=== PATIENT | female | born 1950 | race Caucasian/White ===

== ENCOUNTER → 2020-03-07 13:42 | Outpatient (CLI) | payer MEDICARE, SELFPAY ==
[2020-03-07] MEDS: COVID-19 VACC #1, MRNA(MOD) 100 MCG/0.5 ML VIAL IM (13:50)
== END ==
PROVIDERS: Visit Provider Internal Medicine
DX: Z23 Encounter for immunization (principal)
CPT/HCPCS: 0011A; 91301

== ENCOUNTER → 2020-04-04 14:10 | Outpatient (CLI) | payer MEDICARE, SELFPAY ==
[2020-04-04] MEDS: COVID-19 VACC #2, MRNA(MOD) 100 MCG/0.5 ML VIAL IM (14:16)
== END ==
PROVIDERS: Visit Provider Internal Medicine
DX: Z23 Encounter for immunization (principal)
CPT/HCPCS: 0012A; 91301

== ENCOUNTER → 2020-04-20 10:10 | Outpatient (CLI) | payer OTHER, SELFPAY | PROVIDERS: PCP Nurse Practitioner Family; Referring Provider Nurse Practitioner Family; Visit Provider Nurse Practitioner Family | DX: M85.88 Other specified disorders of bone density and structure, other site (principal); Z78.0 Asymptomatic menopausal state; E07.9 Disorder of thyroid, unspecified; Z90.722 Acquired absence of ovaries, bilateral; Z87.891 Personal history of nicotine dependence; Z82.62 Family history of osteoporosis | CPT/HCPCS: 77080 ==

== ENCOUNTER → 2020-06-15 09:50 | Outpatient (CLI) | payer OTHER, SELFPAY ==
--- NOTE | 2020-07-12 09:23 | PM.CARDMON.1 ---
Organ Pipe Voicer Report Referral & Results Date Patient Seen: 06/15/20 Requesting provider: Claudette Yoon Indication: Palpitations Duration of monitoring (days): 7 Diary information: There were 16 patient triggered events and 13 patient diary entries Patient triggered events were associated with (within 45 seconds) sinus rhythm, PACs, and junctional rhythm (verses wandering atrial pacemaker) Patient diary entries were associated with the same 3 rhythms Data: Minimum sinus heart rate identified was 45 beats per minute at 01:50 on 06/17/2020 Maximum sinus heart rate was 118 beats per minute at 13:10 on 06/20/2020 Minimum overall heart rate was 35 beats per minute identified at 02:27 on 06/18/2020 during a brief (less than 3 seconds) pause Maximum overall heart rate was 144 beats per minute at 11:16 on 06/18/2020 during a 7 beat run of SVT/atrial tachycardia Less than 1% of identified beats were ventricular or supraventricular ectopic in origin, which would classify them as rare. There were episodes of either junctional rhythm or more likely a wandering atrial pacemaker Impression: 7 day monitoring engineer without evidence of serious cardiac dysrhythmia. Single clear etiology for patient's sense of palpitations not identified on this study as majority of patient events were associated with sinus rhythm only. However other various dysrhythmias were identified as above including during patient events. Clinical correlation suggested
== END ==
PROVIDERS: PCP Nurse Practitioner Family; Referring Provider Nurse Practitioner Family; Visit Provider Nurse Practitioner Family
DX: R00.2 Palpitations (principal)
CPT/HCPCS: 93242; 93244

== ENCOUNTER → 2020-08-22 14:52 | Outpatient (CLI) | payer OTHER, SELFPAY ==
--- NOTE | 2020-08-22 | DI.ECHO.S_ITS ---
[facility] +---------+ : : [address] : [address] : : : : [id number] : : : : Phone: [phone]+ Echocardiogram Report + + :Name: KRIS MCRAE Study Date: 08/22/2020 Height: 68 in : :[facility] ReadingLocation: Weight: 190 lb : : Gender: Female BSA: 2.0 m2 : :: 1950 Age: 70 yrs BP: 160/87 mmHg: :Reason For Study: PALPITATIONS : :Ordering Physician: LANCE, : :OMAR Performed By: Judith Collins : :Referring: OMAR LLANES : + + Interpretation Summary 1) Normal left ventricular thickness, size, wall motion, and systolic function (EF 60-65%). 2) The right ventricle is mildly dilated and has low normal function. 3) Diastolic parameters suggest a pseudonormalization pattern, consistent with probable elevated filling pressures. 4) No significant valvular abnormalities. 5) Hypertension present during the study (BP 160/87mmHg). 6) No prior Echo available for comparison. Procedure: A two-dimensional transthoracic echocardiogram with color flow and Doppler was performed. The study quality was technically adequate. There is no prior echocardiogram noted for this patient. The patient was in sinus bradycardia with heart rates between 55-60 bpm during the exam. Left Ventricle: The left ventricle is normal in size and wall thickness. The ejection fraction is estimated to be 60-65%. Left ventricular systolic function appears normal without focal wall motion abnormalities. Diastolic parameters suggest a pseudonormalization pattern, consistent with probable elevated filling pressures. Right Ventricle: The right ventricle is mildly dilated. Right ventricular systolic function is at the lower limits of normal. Atria: The left atrium is moderately dilated. Right atrial size is normal. There is no Doppler evidence for an interatrial shunt. Mitral Valve: The mitral valve is normal in structure and function. There is mild mitral regurgitation. Aortic Valve: The aortic valve is trileaflet. The aortic valve opens well. There is no aortic valve stenosis. No aortic regurgitation is present. Tricuspid Valve: The tricuspid valve is normal in structure and function. The right ventricular systolic pressure is estimated to be at least 32 mmHg based on an estimated right atrial pressure of 8 mm Hg. There is mild tricuspid regurgitation. Pulmonic Valve: The pulmonic valve leaflets are thin and pliable; valve motion is normal. There is no pulmonic valvular regurgitation. Great Vessels: The aortic root is normal size. The ascending aorta could not be visualized. The IVC is dilated (diameter is greater than 2.1 cm) yet it collapses greater than 50% with a sniff. This suggests a right atrial pressure of 8 mm Hg. Pericardium/ Pleura There is no pericardial effusion. There is no pleural effusion. MMode/2D Measurements & Calculations LVIDd: 4.7 cm LVOT diam: 2.1 cm LVIDs: 3.1 cm Ao root diam: 3.0 cm FS: 34.3 % Ao Arch Diam (Prox Trans): 2.9 cm IVSd: 0.84 cm LVPWd: 0.91 cm LV rodriguez. diameter/BSA (cm/m^2): 2.4 LV sys. diameter/BSA (cm/m^2): 1.6 LA A2 area: 26.6 cm2 RA long axis: 5.1 cm LA A4 area: 21.9 cm2 RA area: 17.8 cm2 LA length (vol): 6.0 cm RA vol: 52.9 ml LA vol: 82.8 ml RA : 26.5 ml/m2 LA vol index: 41.4 ml/m2 IVC diam: 2.1 cm RVD1 (basal): 4.5 cm RVD2 (mid): 3.4 cm TAPSE: 1.8 cm Doppler Measurements & Calculations Ao V2 max: 158.9 cm/sec LVOT Max Humberto: 100.3 cm/sec Ao V2 mean: 113.1 cm/sec LV V1 max P.0 mmHg Ao max P.1 mmHg LV V1 VTI: 23.2 cm Ao mean P.7 mmHg MIRTA(I,D): 2.1 cm2 Ao V2 VTI: 40.4 cm MIRTA(V,D): 2.3 cm2 sev ratio: 0.57 MIRTA indexed to BSA (cm^2/m^2): 1.0 MV E max humberto: 95.2 cm/sec TR max humberto: 256.6 cm/sec MV A max humberto: 88.2 cm/sec TR max P.3 mmHg MV E/A: 1.1 PA V2 max: 116.0 cm/sec Med Peak E' Humberto: 5.9 cm/sec PA V2 mean: 77.9 cm/sec E/E' med: 16.2 PA mean P.8 mmHg Lat Peak E' Humberto: 7.3 cm/sec PA pr(Accel): 31.0 mmHg E/E' lat: 13.0 E/e' average: 14.6 MV dec time: 0.24 sec SV(MADALYN): 83.2 ml Reading Physician:04:21 PM
== END ==
PROVIDERS: PCP Nurse Practitioner Family; Referring Provider Internal Medicine Cardiovascular Disease; Visit Provider Internal Medicine Cardiovascular Disease
DX: I08.1 Rheumatic disorders of both mitral and tricuspid valves (principal); R00.2 Palpitations; Z87.74 Personal history of (corrected) congenital malformations of heart and circulatory system
CPT/HCPCS: 93306

== ENCOUNTER → 2021-01-25 09:54 | Outpatient (CLI) | payer OTHER, SELFPAY ==
--- NOTE | 2021-01-25 | DI.MG.S_ITS ---
BILATERAL DIGITAL SCREENING MAMMOGRAM 3D/2D WITH CAD: 01/25/2021 CLINICAL: Routine screening. Comparison is made to exams dated: 02/08/2014 mammogram and 01/16/2018 mammogram - outside facility. There are scattered fibroglandular elements in both breasts. Current study was also evaluated with a Computer Aided Detection (CAD) system. No significant masses, calcifications, or other findings are seen in either breast. There has been no significant interval change. IMPRESSION: NEGATIVE There is no mammographic evidence of malignancy. A 1 year screening mammogram is recommended. This exam was interpreted at Station ID: [id number]. NOTE: For mammograms, a report in lay terms will be sent to the patient. Approximately 15% of breast malignancies will not be visualized mammographically. In the management of a palpable breast mass, a negative mammogram must not discourage biopsy of a clinically suspicious lesion. Electronically Signed By: Ashley gaines/dequan:01/25/2021 11:19:03 letter sent: Normal Exam ACR BI-RADS Category 1: Negative [id number]
== END ==
PROVIDERS: PCP Nurse Practitioner Family; Referring Provider Family Medicine; Visit Provider Family Medicine
DX: Z12.31 Encounter for screening mammogram for malignant neoplasm of breast (principal)
CPT/HCPCS: 77063; 77067

== ENCOUNTER → 2021-11-26 10:40 | Outpatient (CLI) | payer OTHER, SELFPAY ==
[2021-11-26 12:21] LABS: COVID19 -Nasal RAPID Negative (Negative)
== END ==
PROVIDERS: PCP Nurse Practitioner Family; Visit Provider Surgery
DX: Z20.822 Contact with and (suspected) exposure to COVID-19 (principal); Z01.812 Encounter for preprocedural laboratory examination
CPT/HCPCS: 87635; C9803

== ENCOUNTER 2021-11-27 13:23 | Day surgery (SDC) | payer OTHER, SELFPAY ==
[2021-11-27] VITALS (7 sets, daily range): BP systolic 101–159; BP diastolic 56–85; PULSE 65–103; RESP 12–20; TEMP 36.1–36.7; O2SAT 94–98; BMI 26.6
--- NOTE | 2021-11-27 | PATH_ITS ---
[facility] Accession Number: [id number] . 01 Material submitted: . PART A: cecum - CECAL POLYP X2 PART B: colon - TRANSVERSE COLON POLYP PART C: sigmoid colon - SIGMOID POLYP X2 . 01 Diagnosis: A. 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 No evidence of malignancy or high-grade dysplasia. . B. Transverse Colon, Polyp, Biopsy: Tubular adenoma. . C. Sigmoid Colon, Polyp x2, Biopsy: Tubular adenoma. Hyperplastic polyp. MRV 11/30/2021 1617 Local . 01 Electronically signed: . Cony Ignacio MD, Pathologist NPI- [id number] . 01 Gross description: . Part A: CECAL POLYP X2: Received in formalin are multiple fragment(s) of larson, soft tissue measuring 0.1 x 0.1 x 0.1 cm to 0.4 x 0.4 x 0.3 cm submitted entirely in 1 cassette(s) Part B: TRANSVERSE COLON POLYP: Received in formalin is 1 fragment(s) of larson, soft tissue measuring 0.2 x 0.2 x 0.2 cm submitted entirely in 1 cassette(s) Part C: SIGMOID POLYP X2: Received in formalin are 2 fragment(s) of larson, soft tissue measuring 0.1 x 0.1 x 0.1 cm to 0.3 x 0.3 x 0.3 cm submitted entirely in 1 cassette(s) /PAM 11/28/2021 2220 Local . 01 Pathologist provided ICD-10: D12.0, D12.3, D12.5 . 01 CPT . 797340, 312315, 498374 Specimen Comment: A courtesy copy of this report has been sent to [phone] Performed at: [address] [facility] [address], [place], [place] [id number] MD Gunnar Soler MD Phone: [phone]
[2021-11-27] MEDS: LACTATED RINGERS 1,000 ML 200 ML IV (13:44)
--- NOTE | 2021-11-27 13:57 | PM.HP.1 ---
History of Present Illness History of Present Illness Date Patient Seen: 11/27/21 Time Patient Seen: 13:57 Chief complaint: HIC Narrative: The patient presents for colorectal screening. She had previously normal colonoscopy 5 years ago. She is here for colonoscopy today secondary to a positive FIT. No personal or family history of colon cancer. On further history denies any recent gastrointestinal symptoms. No nausea, vomiting, abdominal pain, loss of appetite, unexplained weight loss, change in bowel habits, diarrhea, constipation, melena, hematochezia, or bright red blood per rectum. Patient History Surgical History H/O: hysterectomy Family & Social History Social History: household members spouse Tobacco & Substance use: Smoking Status Former smoker alcohol intake current alcohol intake frequency a few times a week Substance Use Type marijuana Meds Home Medications and Allergies Home Medications Medication Instructions Recorded Confirmed Type amlodipine 10 mg tablet 10 mg PO DAILY 11/27/21 11/27/21 History levothyroxine 88 mcg tablet 88 mcg PO DAILY 11/27/21 11/27/21 History rosuvastatin 20 mg tablet 20 mg PO DAILY 11/27/21 11/27/21 History sertraline 50 mg tablet 100 mg PO DAILY 11/27/21 11/27/21 History Allergies Allergy/AdvReac Type Severity Reaction Status Date / Time No Known Drug Allergies Allergy Verified 11/27/21 13:31 Exam Vital Signs (past 8 hours): - 11/27/21 13:39 Temperature 98.1 F Pulse Rate 103 H Respiratory Rate 20 Blood Pressure 159/85 H Pulse Oximetry 95 Oxygen Delivery Method Room Air Oxygen Delivery Method Room Air Narrative Exam Narrative: General adult woman alert oriented no acute distress Assessment & Plan Assessment and plan (1) Positive FIT (fecal immunochemical test): Status: Acute Assessment & Plan narrative: Diagnostic colonoscopy is recommended for a positive fecal immunochemical test. Technical details were discussed. Risks, benefits, alternatives explained. Risks including but not limited to myocardial infarction, aspiration, bleeding, pain, missed lesion, incomplete examination, need for further radiographic studies, colonic perforation, and need for major abdominal surgery were discussed. All questions were answered to their satisfaction, and they are in agreement with this plan. Time Spent With Patient Critical Care time: I spent a total of [] minutes of critical care time on this patient's care today; this time is exclusive of procedural time.
--- NOTE | 2021-11-27 14:06 | PM.OP.COLON ---
Operative Date/Time/Diagnoses Date of procedure: 11/27/21 Time of procedure: 14:06 Pre-op diagnosis: Positive fecal immunochemical test Post-op diagnosis: same Procedure & Clinicians Study performed: Colonoscopy Same procedure as scheduled: Yes Indications: Positive fecal immunochemical test Surgeon: Jaime Whitehead Procedure Notes Procedure in detail: Medications: Conscious sedation using 5mg IV midazolam and 200mcg IV of fentanyl The history and physical was performed/updated and the patient is ASA class is 2. The procedure was discussed in detail with the patient. Potential risks complications including infection, bleeding, missed diagnosis, perforation, need for surgery, and were explained. Their questions were answered and informed consent was obtained. Patient was brought to the procedure room and placed standard monitoring equipment. The patient's vital signs were monitored continuously throughout the entire procedure. Prior to starting time-out was performed. The patient was placed in the left lateral recumbent position. Procedural sedation was administered. Examination began with a thorough inspection of the perianal area there was no evidence of fissures, fistulae, external hemorrhoids or cutaneous malignancy. The colonoscopy scope was then placed into the anal canal and was advanced to the cecum, which was identified by the ileocecal valve, the appendiceal orifice and the confluence of the taenia. The scope was then slowly withdrawn examining colon thoroughly in all directions, irrigating it of any residual stool. FINDINGS 1. Cecum pedunculated 5 mm polyp removed with cold snare. Near the appendiceal orifice. 3 mm serrated polyp removed with forceps 2. Transverse colon-3 mm polyp removed with forceps 3. Sigmoid colon 3 mm polyp x2 removed with forceps 4. Dutton diverticulosis The patient tolerated the procedure well. They will be discharged once criteria are met. The prep was of good/excellent quality. The withdrawl time was 18minutes. The sedation time was30 minutes. Specimen(s): other (Cecal polyps x2, transverse colon polyp, sigmoid polyp x2) Impression: Colonic polyps Post-procedure Recommendations: High fiber diet and Will call with biopsy results Disposition: same day surgery
[2021-11-27] MEDS: MIDAZOLAM 5 MG/5 ML VIAL IV (14:41)
[2021-11-27] MEDS: fentaNYL 100 MCG/2 ML INJ IV (14:42)
--- NOTE | 2021-11-27 15:14 | SUR.PHASEI ---
SBAR report to Norberto riley pt pre-op SBP 159 however pt report having Bp at home in the 120's. Pt denies dizziness /lightheadedness.
== END 2021-11-27 15:26 | disposition home or self-care (01) ==
PROVIDERS: PCP Family Medicine; Referring Provider Surgery; Visit Provider Surgery
PROC: 0DJD8ZZ Inspection of Lower Intestinal Tract, Via Natural or Artificial Opening Endoscopic (ICD-10-PCS; CPT 45378; principal; 2021-11-27 14:30)
DX: R19.5 Other fecal abnormalities (principal); K57.30 Diverticulosis of large intestine without perforation or abscess without bleeding; D12.0 Benign neoplasm of cecum; D12.3 Benign neoplasm of transverse colon; D12.5 Benign neoplasm of sigmoid colon
CPT/HCPCS: 45385; 45380; 99152; 99153; J2250; J3010

== ENCOUNTER 2022-03-03 08:39 | Emergency (ER) | payer OTHER, SELFPAY ==
[2022-03-03] VITALS (32 sets, daily range): BP systolic 173–243; BP diastolic 82–115; PULSE 49–73; RESP 11–27; TEMP 36.8; O2SAT 93–100; BMI 24.3
--- NOTE | 2022-03-03 08:56 | DI.RAD.S_ITS ---
PROCEDURE: XR FOREARM LT 2V INDICATIONS: r/o fx TECHNIQUE: 2 views of the forearm were acquired. COMPARISON: None. FINDINGS: Bones: Comminuted displaced distal radius fracture described in wrist radiographs. Probable ulnar styloid fracture. No other more proximal fractures. Elbow alignment appears grossly normal. Soft tissues: No suspicious soft tissue calcifications or masses. IMPRESSION: 1. Impacted distal radius fracture described in wrist radiographs. 2. Ulnar styloid fracture. Dictated by: Ashley Nino M.D. on 03/03/2022 at 8:46 Approved by: Ashley Nino M.D. on 03/03/2022 at 8:47
--- NOTE | 2022-03-03 08:56 | DI.RAD.S_ITS ---
PROCEDURE: XR WRIST LT MIN 3V INDICATIONS: r/o fx TECHNIQUE: Four views of the wrist were acquired. COMPARISON: None. FINDINGS: Bones: There is a dorsally displaced and markedly impacted transverse fracture of the distal radius with slight comminution. The fracture fragment is dorsally displaced by a full shaft width and impacted by about 1 cm radiocarpal alignment appears maintained.. There is probably an ulnar styloid fracture Soft tissues: No suspicious soft tissue calcifications. Prominent ventral soft tissue swelling. No radiodense foreign bodies. IMPRESSION: 1. Dorsally displaced and impacted comminuted distal radius fracture. 2. Radiocarpal alignment remains intact. Dictated by: Ashley Nino M.D. on 03/03/2022 at 8:43 Approved by: Ashley Nino M.D. on 03/03/2022 at 8:46
--- NOTE | 2022-03-03 09:03 | ED.UPPEXIN ---
HPI - Extremity Injury (Upper) General Chief Complaint: Extremity Injury, Upper Stated Complaint: fell thinks broke LT wrist Time Seen by Provider: 03/03/22 08:55 Source: patient Mode of arrival: Wheelchair Limitations: no limitations History of Present Illness HPI narrative: This is a 71 year old female with history of open heart surgery, hypertension, dyslipidemia, hypothyroidism and anxiety. Patient does not take an aspirin or any blood thinners. She states she slipped today it is icy outside and fell onto her outstretched hand on her left side. Patient is left-hand dominant. She states she has pain and obvious deformity numbness and tingling into the fingers. Patient states she did not hit her head, denies any neck or back pain. No chest pain or shortness of breath. No nausea or vomiting. Besides tingling numbness in her left hand going up towards her elbow she denies any weakness numbness or tingling elsewhere. No loss bowel or bladder control. No hip or pelvic pain. Patient states she is had prior CABG and hysterectomy. No known drug allergies. No tobacco, occasional alcohol, none today. THC but no other illicit. Patient states her primary care is Dr. Lucero Related Data Home Medications Medication Instructions Recorded Confirmed amlodipine 10 mg tablet 10 mg PO DAILY 11/27/21 11/27/21 levothyroxine 88 mcg tablet 88 mcg PO DAILY 11/27/21 11/27/21 rosuvastatin 20 mg tablet 20 mg PO DAILY 11/27/21 11/27/21 sertraline 50 mg tablet 100 mg PO DAILY 11/27/21 11/27/21 Previous Rx's Medication Instructions Recorded oxycodone 5 mg tablet 5 mg PO Q6H PRN pain #14 tabs 03/03/22 Allergies Allergy/AdvReac Type Severity Reaction Status Date / Time No Known Drug Allergies Allergy Verified 11/27/21 13:31 Review of Systems Review of Systems ROS Unobtainable: All systems reviewed & are unremarkable except as noted in HPI and below Patient History Surgical History H/O: hysterectomy Social History household members: spouse Smoking Status: Former smoker alcohol intake: current Smoking Status: Former smoker alcohol intake frequency: a few times a week Substance Use Type: marijuana Exam Narrative Exam Narrative: GEN: Patient appears in [id number] distress. HEAD: No evidence of trauma, no raccoon/Oscar sign. NECK: Nontender, painless range of motion, trachea midline Negative Nexus criteria, there is no midline line tenderness, distracting injury, altered mental status, neuro deficit, recent EtOH. EYES: PERRLA, EOMI ENT: External inspection normal, trachea is midline, TM's are normal no hemotypanum, Nares are clear, no septal hematoma, no dental or oral injury, airway is normal and with normal occlusion, No bony tenderness RESP: Chest is nontender and has symmetric movement, no ecchymosis, breath sounds are normal no crackles, wheezes or rales CVS: Heart sounds are normal, no murmur noted, No JVD. ABG/GI: Nontender, soft, normal bowel sounds, no distention, no organomegaly, pelvic rock is negative NEURO: Oriented AOx3, neuro is grossly intact, sensation and motor is normal all 4 extremities moving, cranial nerves II through XII are intact, GCS is 15 PSYCH: Normal mood and affect SKIN: Intact, warm and dry, no crepitus and without decubitus BACK: No CVA tenderness, no vertebral tenderness, no step-off's, no crepitus EXT: Patient has obvious deformity of the left wrist, she can move her fingers with flexion extension but has pain, no bony tenderness of metacarpals or phalanges. Patient does not have any tenderness of the left elbow, forearm humerus or upper shoulder. Patient can light touch to the hand but states it does feel different in comparison to the right and in all 5 fingers. She has cap refill less than 2 seconds in all 5 fingers with 2+ radial pulse. hips are nontender, no pedal edema, normal color and temperature, normal range of motion of extremities with normal tendon exam otherwise, 2+ pulses in all four extremities Initial Vital Signs Initial Vital Signs: Vital Signs Pulse Rate 69 03/03/22 08:55 Pulse Oximetry 100 03/03/22 08:55 Procedures Orthopedic Fracture Reduction Fracture #1: Time Out Performed: Yes Side: left Fracture Reduction Location: radius and ulna Analgesia: procedural sedation Technique: direct manipulation and traction/counter-traction Post Reduction X-rays Demonstrate: acceptable reduction Post-reduction neuro exam: intact (improved, tingling/numbness resolved.) Post-reduction vascular exam: intact Splint Applied: Yes Patient Tolerated Procedure: Well and No complications Procedural Sedation Consent signed: Yes Time out performed: Yes Indication: fracture/dislocation reduction ASA Class: II Mallampati Airway Classification: Class II Time of Last PO Intake: 08:00 Preparation: nanotechnology engineering technologist applied, pulse oximeter, capnometry used, supplemental O2 applied, suction/airway equipment at bedside and IV secured IV Propofol dose (mg): 75 Intraservice time/total sedation time (min): 20 ED Sedation Level: Moderate (Concious) Patient Tolerated Procedure: Well and No complications Complications: none Course Orders Ordered: ED Orders 03/03/22 10:22 COVID19 -Nasal RAPID/Pre-Proc Stat 03/03/22 10:56 XR wrist LT 2V Stat Discontinued Medications Bupivacaine HCl (Bupivacaine 0.25% Mdv) 50 ml INJ INTRA-OP ONE Stop: 03/03/22 09:25 Last Admin: 03/03/22 09:59 Dose: Not Given Documented By: RON Morphine Sulfate (Morphine 4 Mg/Ml Inj) 4 mg IV NOW ONE Stop: 03/03/22 09:04 Last Admin: 03/03/22 10:03 Dose: 4 mg Documented By: KELLY Ondansetron HCl (Ondansetron 4 Mg/2 Ml Inj) 4 mg IV Q6HR PRN PRN Reason: Nausea And Vomiting Propofol (Propofol 200 Mg/20 Ml Vial) 75 mg 1 mg/kg (75 mg) IV NOW ONE Stop: 03/03/22 09:32 Last Admin: 03/03/22 10:43 Dose: 75 mg Documented By: KELLY Vital Signs Vital signs: Vital Signs - 8 hr 03/03/22 10:18 03/03/22 11:14 03/03/22 10:20 Temperature 98.2 F Pulse Rate 60 Pulse Rate [Left Radial] 67 Respiratory Rate 16 Blood Pressure 197/98 H 223/112 H Pulse Oximetry 97 03/03/22 10:20 03/03/22 10:25 03/03/22 10:25 Temperature Pulse Rate 65 63 Pulse Rate [Left Radial] Respiratory Rate 16 18 Blood Pressure 206/99 H Pulse Oximetry 100 100 03/03/22 10:30 03/03/22 10:30 03/03/22 10:35 Temperature Pulse Rate 60 Pulse Rate [Left Radial] Respiratory Rate 17 Blood Pressure 228/115 H 206/108 H Pulse Oximetry 100 03/03/22 10:35 03/03/22 10:40 03/03/22 10:40 Temperature Pulse Rate 65 67 Pulse Rate [Left Radial] Respiratory Rate 20 16 Blood Pressure 204/110 H Pulse Oximetry 100 100 03/03/22 10:43 03/03/22 10:43 03/03/22 10:45 Temperature Pulse Rate 64 49 L Pulse Rate [Left Radial] Respiratory Rate 16 27 H Blood Pressure 203/99 H 210/102 H Pulse Oximetry 99 100 03/03/22 10:50 03/03/22 10:50 03/03/22 10:58 Temperature Pulse Rate 54 L 64 Pulse Rate [Left Radial] Respiratory Rate 21 16 Blood Pressure 209/98 H Pulse Oximetry 93 03/03/22 10:55 03/03/22 10:55 03/03/22 11:00 Temperature Pulse Rate 51 L 56 L Pulse Rate [Left Radial] Respiratory Rate 16 11 L Blood Pressure 214/86 H Pulse Oximetry 96 95 03/03/22 11:01 03/03/22 11:01 03/03/22 11:05 Temperature Pulse Rate 60 Pulse Rate [Left Radial] Respiratory Rate 17 Blood Pressure 192/93 H 194/102 H Pulse Oximetry 95 03/03/22 11:05 03/03/22 11:10 03/03/22 11:10 Temperature Pulse Rate 59 L 52 L Pulse Rate [Left Radial] Respiratory Rate 16 13 Blood Pressure 193/88 H Pulse Oximetry 97 98 03/03/22 11:15 03/03/22 11:15 03/03/22 11:20 Temperature Pulse Rate 59 L 56 L Pulse Rate [Left Radial] Respiratory Rate 14 12 Blood Pressure 197/98 H Pulse Oximetry 96 97 03/03/22 11:25 03/03/22 11:30 03/03/22 11:30 Temperature Pulse Rate 53 L 62 Pulse Rate [Left Radial] Respiratory Rate 18 18 Blood Pressure 173/82 H Pulse Oximetry 99 97 03/03/22 11:35 03/03/22 11:40 03/03/22 11:45 Temperature Pulse Rate 60 56 L 64 Pulse Rate [Left Radial] Respiratory Rate 17 14 Blood Pressure Pulse Oximetry 97 98 96 MDM - Extremity Injury (Upper) Lab Data Labs: Lab Results 03/03/22 Range/Units 10:22 SARS-CoV-2 (PCR) Negative (Negative) Point of Care Testing Test Results Not applicable Imaging Data Extremity x-ray #1: My Impression: Fully displaced radial ulnar fracture distal. Extremity x-ray #2: My Impression: Patient has improvement of alignment although still some displacement. MDM Narrative Medical decision making narrative: This is a 71-year-old female with obvious deformity of her left wrist, patient had IV access for pain medication and possible sedation she is obvious deformity on exam. Patient has some sensation change but is present she is otherwise vascularly intact. Closed fracture with no lacerations or wounds. Patient had complete misalignment of her fracture, patient had procedural sedation with improve malalignment. Case was reviewed with Dr. Isbell with Orthopedic surgery. Outpatient follow-up recommended. Return precautions all questions answered, also discussed specific recommendations from Dr. Isbell that if patient is having worsening tingling to call the orthopedic office but if having significant changes to just come back to the ER. Discharge Plan Departure Patient Disposition: Home Clinical Impression: Closed fracture of left wrist Activity Restrictions/Additional Instructions: Follow-up with orthopedic surgery, call tomorrow morning to set up an follow-up next week. If you are tingling gets worse please call the office. If you are losing sensation or having been color changes or rapidly worsening pain come to the ER. You may take Tylenol up to a 1000 mg every 6 hours as needed for pain. You may take oxycodone in addition 1 tablets every 6 hours as needed. This medication can make you sleepy do not drive, perform hazardous activities or make any major decisions while taking it. This medication will make you constipated please take a stool softener once to twice daily until stools are soft and regular. Prescription sent to [facility] Splint Care: Keep splint clean and dry. Elevated affected body part to decrease swelling. OK to use ice pack on the affected body part. Use for 15-20 minutes each time, for 5-6x per day. If you develop worsening pain, numbness, tingling, discoloration of the affected body part, loosen the splint by loosening the EDWARD wrap, and either see your doctor for an urgent re-assessment, or return to the Emergency Department. Return to the Emergency Department for any new or worsening symptoms. Prescriptions: New oxycodone 5 mg tablet 5 mg PO Q6H PRN (Reason: pain) Qty: 14 0RF No Action levothyroxine 88 mcg tablet 88 mcg PO DAILY amlodipine 10 mg tablet 10 mg PO DAILY sertraline 50 mg tablet 100 mg PO DAILY rosuvastatin 20 mg Tablet 20 mg PO DAILY Referrals: Indy Elizabeth MD [Physician] - Pablo Malin MD [Primary Care Provider] - Stand Alone Forms: Patient Portal/API
[2022-03-03] MEDS: MORPHINE 4 MG/ML INJ IV (10:03)
[2022-03-03] MEDS: propofoL 200 MG/20 ML VIAL 75 MG IV (10:43)
[2022-03-03 10:44] LABS: COVID19 -Nasal RAPID Negative (Negative)
--- NOTE | 2022-03-03 10:56 | DI.RAD.S_ITS ---
PROCEDURE: XR WRIST LT 2V INDICATIONS: Postreduction TECHNIQUE: Two views of the wrist were acquired. COMPARISON: [facility], CR, XR WRIST LT MIN 3V, 03/03/2022, 8:55. FINDINGS: Bones: Splint material obscures fine bone detail. There is improved alignment of the mainly transverse, slightly comminuted distal radius fracture with now mild impaction and less than 1/2 shaft width of dorsal displacement. No angulation. Radiocarpal alignment is grossly normal. Ulnar styloid fracture is mildly displaced. Soft tissues: No suspicious soft tissue calcifications. No significant soft tissue swelling post splint placement. IMPRESSION: 1. Improved alignment of distal radius fracture post reduction. 2. Redemonstrated displaced ulnar styloid fracture. Dictated by: Ashley Nino M.D. on 03/03/2022 at 10:27 Approved by: Ashley Nino M.D. on 03/03/2022 at 10:29
== END 2022-03-03 11:56 | disposition home or self-care (01) ==
PROVIDERS: Emergency Provider Emergency Medicine; PCP Family Medicine
DX: S52.502A Unspecified fracture of the lower end of left radius, initial encounter for closed fracture (principal); S52.612A Displaced fracture of left ulna styloid process, initial encounter for closed fracture; W00.0XXA Fall on same level due to ice and snow, initial encounter; Z20.822 Contact with and (suspected) exposure to COVID-19
CPT/HCPCS: 25605; 29125; 36415; 73090; 73100; 73110; 87635; 96374; 99152; 99153; 99284; C9803; J2270; J2704

== ENCOUNTER → 2022-12-06 09:39 | Outpatient (CLI) | payer OTHER, SELFPAY ==
--- NOTE | 2022-12-06 | DI.RAD.S_ITS ---
Bone Density Report Name: KRIS MCRAE Age: 72 Sex: Female Ethnicity: White Date of : 1950 Indication: osteopenia; Referring Provider: HELENA ENGLAND Study: Bone densitometry was performed. Exam Date: December 06, 2022 Accession number: [id number] Bone Density: Region BMD T-score Z-score Classification AP Spine(L1-L4) 0.737 -2.8 -0.7 Osteoporosis Femoral Neck (Left) 0.620 -2.1 -0.3 Osteopenia Total Hip (Left) 0.790 -1.2 0.3 Osteopenia Femoral Neck (Right) 0.614 -2.1 -0.3 Osteopenia Total Hip (Right) 0.750 -1.6 -0.1 Osteopenia Total Hip Mean 0.770 -1.4 0.1 Osteopenia World Health Organization criteria for BMD impression classify patients as: Normal (T-score at or above -1.0), Osteopenia (T-score between -1.0 and -2.5), or Osteoporosis (T-score at or below -2.5). 10-year Fracture Risk: FRAX not reported because: Some T-score for Spine Total or Hip Total or Femoral Neck at or below -2.5 Previous Exams: -- Region Exam Age BMD T-score BMD Change BMD Change Date g/cm2 vs Baseline vs Previous -- AP Spine (L1-L4) 12/06/2022 72 0.737 -2.8 -0.108 (-12.7%)# -0.108 (-12.7%)# 04/20/2020 69 0.845 -1.8 Total Hip(Left) 12/06/2022 72 0.790 -1.2 -0.077 (-8.9%)# -0.077 (-8.9%)# 04/20/2020 69 0.867 -0.6 Total Hip(Right) 12/06/2022 72 0.750 -1.6 -0.068 (-8.3%)# -0.068 (-8.3%)# 04/20/2020 69 0.818 -1.0 -- *Denotes significance at 95% confidence level, LSC for AP Spine = 0.022 g/cm2, LSC for Total Hip = 0.027 g/cm2 # Denotes dissimilar scan types or analysis methods Impression: The patient has osteoporosis, based on the Total Spine T-score. No significant bone loss was observed. Discussion: INCREASED RISK OF FRACTURE. BONE DENSITY IS UNDESIRABLY LOW AT ONE OR MORE SKELETAL SITES, CONSISTENT WITH POSTMENOPAUSAL OSTEOPOROSIS. This patient's lowest T-score meets the World Health Organization's (WHO) criteria for osteoporosis at one or more sites (T-score -2.5 or below). In untreated patients, the risk of osteoporotic fracture increases approximately two-fold for each 1.0 SD decrease in T-score. Low bone density is not the only risk factor for fracture; also consider factors such as patient's age, frailty or poor health, risk of falling, risk of injury, previous osteoporotic fracture, family history of osteoporosis, cigarette smoking, low body weight, etc. Not everyone with low bone mineral density has osteoporosis; osteomalacia and other metabolic bone disorders should also be considered. Patients who have osteoporosis should be evaluated for specific diseases and conditions (secondary causes) that may cause or contribute to bone loss. The [place] Association of Clinical Endocrinologists (AACE) and National Osteoporosis Foundation (NOF) recommend pharmacologic intervention for all postmenopausal women whose T-score is in this range. The patient should follow a healthful lifestyle (good nutrition with adequate calcium and vitamin D, and appropriate weight-bearing exercise). Follow-Up: Consider a repeat BMD and Vertebral Fracture Assessment (VFA) exam in 2 years or sooner if medically necessary, to reassess this patient's status. Reported by: GABE DOTY M.D. on 12/06/2022 10:01:00 AM.
== END ==
PROVIDERS: PCP Registered Nurse; Referring Provider Internal Medicine; Visit Provider Internal Medicine
DX: Z78.0 Asymptomatic menopausal state (principal); M81.0 Age-related osteoporosis without current pathological fracture
CPT/HCPCS: 77080

== ENCOUNTER → 2023-11-05 11:11 | Outpatient (CLI) | payer OTHER, SELFPAY ==
--- NOTE | 2023-11-05 | DI.MG.S_ITS ---
BILATERAL DIGITAL SCREENING MAMMOGRAM 3D/2D WITH CAD: 11/05/2023 CLINICAL: Routine screening. Family history of breast cancer. Comparison is made to exams dated: 01/25/2021 mammogram - [facility], 01/16/2018 mammogram, and 02/08/2014 mammogram - outside facility. The breasts are heterogeneously dense, which may obscure small masses (category c / 51-75% glandular tissue). Current study was also evaluated with a Computer Aided Detection (CAD) system. No significant masses, calcifications, or other findings are seen in either breast. Left breast scar marker. There has been no significant interval change. IMPRESSION: NEGATIVE There is no mammographic evidence of malignancy. A 1 year screening mammogram is recommended. Based on the Tyrer Cuzick model (a risk assessment model) the patient's lifetime risk is 3.1% and her 10 year risk is 2.1%. According to the ACR, ACS, and NCCN guidelines, an annual breast MRI exam along with mammogram is recommended if the patient's lifetime risk is 20% or greater. This exam was interpreted at Station ID: [id number]. NOTE: For mammograms, a report in lay terms will be sent to the patient. Approximately 15% of breast malignancies will not be visualized mammographically. In the management of a palpable breast mass, a negative mammogram must not discourage biopsy of a clinically suspicious lesion. Electronically Signed By: Angel Hairston M.D. slc/:11/05/2023 13:00:20 letter sent: Normal Exam ACR BI-RADS Category 1: Negative
== END ==
PROVIDERS: PCP Registered Nurse; Referring Provider Registered Nurse; Visit Provider Registered Nurse
DX: Z12.31 Encounter for screening mammogram for malignant neoplasm of breast (principal); Z80.3 Family history of malignant neoplasm of breast; R92.333 Mammographic heterogeneous density, bilateral breasts
CPT/HCPCS: 77063; 77067

== ENCOUNTER 2024-03-15 18:36 | Emergency (ER) | payer MEDICARE, SELFPAY ==
[2024-03-15] VITALS (27 sets, daily range): BP systolic 129–222; BP diastolic 66–127; PULSE 54–146; RESP 14–22; TEMP 36.4–36.9; O2SAT 94–97; BMI 24.9
--- NOTE | 2024-03-15 19:00 | EKG_ITS ---
[facility] [id number] [place] [id number] Test Date: 2024-03-15 Pat Name: Geovanna Pickard Department: Room: Gender: Female Centrifuge Operator: MELIA : 1950 Requested By: Order Number: [id number] Reading MD: Cj Hall Measurements Intervals [place] Rate: 140 P: 238 [place]: QRS: -28 QRSD: 132 T: -47 QT: 346 QTc: 528 Interpretive Statements Critical Test Result: High HR Atrial flutter with 2:1 AV conduction Nonspecific intraventricular block Minimal voltage criteria for LVH, may be normal variant ( Marshal product ) T wave abnormality, consider anterolateral ischemia Electronically Signed On 03-17-2024 23:44:41 PST by Cj Hall
--- NOTE | 2024-03-15 19:00 | DI.RAD.S_ITS ---
PROCEDURE: XR CHEST 1V INDICATIONS: chest pain TECHNIQUE: One view of the chest was acquired. COMPARISON: None. FINDINGS: Surgical changes and devices: Sternotomy wires. Device projects over left mid chest. Lungs and pleura: Right lung base linear opacity probably atelectasis or scarring. No dense consolidation or pleural effusion. Mediastinum: Normal heart size. Bones and chest wall: Degenerative changes. IMPRESSION: No dense consolidation or pleural effusion on this single view study. Right lung base linear opacity probably atelectasis or scarring. Dictated by: Dustin Finley M.D. on 03/15/2024 at 19:43 Approved by: Dustin Finley M.D. on 03/15/2024 at 19:44
[2024-03-15] MEDS: dilTIAZem 25 MG/5 ML SDV 10 MG IV (19:08)
[2024-03-15] MEDS: ASPIRIN 81 MG CHEW TAB 324 MG PO (19:08)
[2024-03-15 19:17] LABS: Add Manual Diff / Slide Review NO; Basophils Absolute Auto 100 /uL (0-100); Eosinophils Absolute Auto 100 /uL (0-450); Hematocrit 44.3 % (36-46); Hemoglobin 15.4 g/dL (12.0-16.0); Lymphocytes Absolute Auto 1500 /uL (1100-4500); Lymphocytes Percent Auto 25.1 % (25-40); Mean Corpuscular HGB Conc 34.9 % (30-36); Mean Corpuscular Hemoglobin 31.1 PG (26-34); Mean Corpuscular Volume 89.1 fL (80-100); Monocytes Absolute Auto 900 /uL (0-900); Monocytes Percent Auto 15.5 % (3-14); Neutrophils Absolute Auto 3300 /uL (1500-7000); Neutrophils Percent Auto 56.4 % (50-75); Platelet Count 312 X10^3/uL (150-400); Red Blood Cell Count 4.97 X10^6/uL (4.0-5.2); Red Cell Distribution Width 13.7 % (11.6-14.8); White Blood Cell Count 5.8 X10^3/uL (4.5-11.0)
[2024-03-15 19:28] LABS: Prothrombin Time 11.5 SECONDS (9.4-12.5)
[2024-03-15 19:30] LABS: PTT Partial Thromboplastin Tim 43 SECONDS (25.1-36.5)
[2024-03-15] MEDS: METOPROLOL TARTRATE 5 MG/5 ML INJ IV ×2 (19:30→19:45)
[2024-03-15 19:31] LABS: Alanine Aminotransferase 17 IU/L (<35); Albumin 4.9 g/dL (3.5-5.0); Albumin Globulin Ratio 1.6 (1.0-2.8); Alkaline Phosphatase 71 U/L (38-126); Aspartate Aminotransferase 26 IU/L (14-36); BUN Creatinine Ratio 18.8 (6-22); Bilirubin Total 0.5 mg/dL (0.2-1.3); Blood Urea Nitrogen 12 mg/dL (7-17); Calcium 9.8 mg/dL (8.4-10.2); Carbon Dioxide 22 mmol/L (22-32); Chloride 107 mmol/L (98-107); Creatine Kinase 34 U/L (30-135); Estimated Glomerular Filt Rate > 60 mL/min (>60); Glucose 103 mg/dL (80-110); HEMOLYSIS < 15 (0-50); Lipase 48 U/L (23-300); Magnesium 2.1 mg/dL (1.6-2.3); Potassium 3.6 mmol/L (3.4-5.1); Sodium 139 mmol/L (137-145); Total Protein 7.9 g/dL (6.3-8.2)
[2024-03-15 19:43] LABS: NT-proBNP (BNP-Adult 18+) 1670 pg/mL (<125); Troponin I < 0.012 ng/mL (0.01-0.034)
--- NOTE | 2024-03-15 20:20 | PC.NURSE ---
Pt ambulatory too restroom without difficulty or assistance, one person standby.
--- NOTE | 2024-03-15 21:30 | ED.CHESTPAIN ---
HPI - Chest Pain General Chief Complaint: Chest Pain Stated Complaint: rapid heart 144 sent by [facility] Time Seen by Provider: 03/15/24 19:01 Source: patient and other Mode of arrival: Ambulatory History of Present Illness HPI narrative: Patient is a 73-year-old female history of bradycardia a ZIO patch on currently hypothyroid hypertension presenting today with some mild chest discomfort. She reports that she takes her blood pressure and heart rate every day yesterday her heart rate was 46 which is about normal for her today see had a lower blood pressure and heart rate in the 100s. She denies any dizziness lightheadedness or palpitations. She is fairly confident this happened within the last 24 hours because she checks her blood pressure and heart rate on very regular basis. No prior history of atrial flutter atrial fibrillation. Not on any anticoagulation Related Data Home Medications Medication Instructions Recorded Confirmed amlodipine 10 mg tablet 10 mg PO DAILY 11/27/21 03/08/24 levothyroxine 88 mcg tablet 88 mcg PO DAILY 11/27/21 03/08/24 sertraline 50 mg tablet 100 mg PO DAILY 11/27/21 03/08/24 Previous Rx's Medication Instructions Recorded alendronate 70 mg tablet 70 mg PO QWEEK #12 tabs 03/08/24 apixaban 5 mg tablet (Eliquis) 5 mg PO BID #60 tabs 03/15/24 Allergies Allergy/AdvReac Type Severity Reaction Status Date / Time No Known Drug Allergies Allergy Verified 03/15/24 18:40 Patient History Medical History (Updated 03/15/24 @ 22:01 by Jocelyn Lopez DO) Psoriasis (~2023) PTSD (post-traumatic stress disorder) Depression Anxiety Restless leg syndrome Shoulder pain Osteoporosis Osteopenia Fractures Mumps Measles Chicken pox Cataracts, bilateral Ovarian cyst Endometriosis Hypothyroidism (~1979) Surgical History (Updated 03/08/24 @ 12:24 by Veronica Covarrubias MD) Anesthesia History of surgery on arm (~2021) ASD (atrial septal defect) (~1999) H/O: hysterectomy (~1982) Family History (Updated 02/26/24 @ 19:42 by Chandni Genao) Father Cancer History of heart disease Hyperlipidemia Hypertension Mother Hypertension Daughter Breast cancer Social History household members: spouse Smoking Status: Former smoker alcohol intake: current Smoking Status: Former smoker alcohol intake frequency: a few times a week Exam Initial Vital Signs Initial Vital Signs: Vital Signs Temperature 98.4 F 03/15/24 18:40 Pulse Rate 145 H 03/15/24 18:40 Respiratory Rate 22 03/15/24 18:40 Blood Pressure 210/117 H 03/15/24 18:40 Pulse Oximetry 97 03/15/24 18:40 Oxygen Delivery Method Room Air 03/15/24 18:40 GENERAL: Alert pleasant well-appearing 73-year-old female and in no acute distress. HEENT: Head atraumatic,EOMI, pupils reactive, face symmetric, moist mucous membranes CARDIOVASCULAR: Irregularly irregular no murmur RESPIRATORY: Breath sounds equal bilaterally, no wheezes rales or rhonchi. ABDOMEN: Soft, nontender. Normoactive bowel sounds all 4 quadrants. No guarding or rebound. EXTREMITIES: Normal range of motion, no clubbing or edema. Neurovascularly intact NEUROLOGICAL: Alert and oriented x4.Normal gait and speech. SKIN: Warm, dry, no laceration, no petechiae, no rashes or lesions. Course Orders Ordered: Discontinued Medications Apixaban (Apixaban 5 Mg Tablet) 5 mg PO NOW ONE Stop: 03/15/24 22:07 Last Admin: 03/15/24 22:18 Dose: 5 mg Documented By: TADEO Aspirin (Aspirin 81 Mg Chew Tab) 324 mg PO NOW ONE Stop: 03/15/24 19:00 Last Admin: 03/15/24 19:08 Dose: 324 mg Documented By: SB Diltiazem HCl (Diltiazem 25 Mg/5 Ml Sdv) 10 mg IV NOW ONE Stop: 03/15/24 19:02 Last Admin: 03/15/24 19:08 Dose: 10 mg Documented By: SB Metoprolol Tartrate (Metoprolol Tartrate 5 Mg/5 Ml Inj) 5 mg IV NOW ONE Stop: 03/15/24 19:27 Last Admin: 03/15/24 19:30 Dose: 5 mg Documented By: SB Metoprolol Tartrate (Metoprolol Tartrate 5 Mg/5 Ml Inj) 5 mg IV NOW ONE Stop: 03/15/24 19:43 Last Admin: 03/15/24 19:45 Dose: 5 mg Documented By: SB Propofol (Propofol 200 Mg/20 Ml Vial) 75 mg 1 mg/kg (75 mg) IV NOW ONE Stop: 03/15/24 21:46 Last Admin: 03/15/24 22:19 Dose: Not Given Documented By: SB Vital Signs Vital signs: Vital Signs - 8 hr 03/15/24 18:40 03/15/24 18:46 03/15/24 18:48 Temperature 98.4 F Pulse Rate 145 H 140 H Respiratory Rate 22 Blood Pressure 210/117 H 210/117 H Pulse Oximetry 97 96 Oxygen Delivery Method Room Air 03/15/24 18:48 03/15/24 19:00 03/15/24 19:02 Temperature Pulse Rate 143 H 139 H Respiratory Rate 14 Blood Pressure 194/122 H Pulse Oximetry 97 96 Oxygen Delivery Method 03/15/24 19:02 03/15/24 19:08 03/15/24 19:27 Temperature Pulse Rate 141 H 141 H Respiratory Rate 21 Blood Pressure 194/122 H 199/127 H Pulse Oximetry 96 Oxygen Delivery Method 03/15/24 19:27 03/15/24 19:30 03/15/24 19:30 Temperature Pulse Rate 146 H 146 H Respiratory Rate 20 17 Blood Pressure 198/107 H Pulse Oximetry 97 97 Oxygen Delivery Method Room Air 03/15/24 19:40 03/15/24 19:40 03/15/24 19:50 Temperature Pulse Rate 116 H Respiratory Rate Blood Pressure 196/77 H 222/91 H Pulse Oximetry 96 Oxygen Delivery Method 03/15/24 19:50 03/15/24 19:58 03/15/24 20:00 Temperature 97.6 F Pulse Rate 132 H 132 H Respiratory Rate Blood Pressure Pulse Oximetry 96 95 Oxygen Delivery Method 03/15/24 20:01 03/15/24 20:01 03/15/24 20:19 Temperature Pulse Rate 125 H Respiratory Rate Blood Pressure 200/113 H 166/116 H Pulse Oximetry 95 Oxygen Delivery Method 03/15/24 20:19 03/15/24 20:30 03/15/24 20:31 Temperature Pulse Rate 132 H 131 H Respiratory Rate Blood Pressure 143/100 H Pulse Oximetry 97 96 Oxygen Delivery Method 03/15/24 20:31 03/15/24 20:42 03/15/24 20:42 Temperature Pulse Rate 134 H 135 H Respiratory Rate 16 Blood Pressure 136/79 Pulse Oximetry 95 95 Oxygen Delivery Method Room Air 03/15/24 20:50 03/15/24 20:50 03/15/24 21:00 Temperature Pulse Rate 135 H Respiratory Rate Blood Pressure 146/94 H 154/78 H Pulse Oximetry 94 Oxygen Delivery Method 03/15/24 21:00 03/15/24 21:10 03/15/24 21:10 Temperature Pulse Rate 135 H 135 H Respiratory Rate Blood Pressure 143/79 H Pulse Oximetry 95 97 Oxygen Delivery Method 03/15/24 21:20 03/15/24 21:20 03/15/24 21:30 Temperature Pulse Rate 111 H Respiratory Rate Blood Pressure 134/87 150/102 H Pulse Oximetry 97 Oxygen Delivery Method 03/15/24 21:30 Temperature Pulse Rate 98 H Respiratory Rate Blood Pressure Pulse Oximetry 96 Oxygen Delivery Method Room Air MDM - Chest Pain Lab Data 03/15/24 19:03 03/15/24 19:03 Labs: Lab Results 03/15/24 Range/Units 19:03 WBC 5.8 (4.5-11.0) X10^3/uL RBC 4.97 (4.0-5.2) X10^6/uL Hgb 15.4 (12.0-16.0) g/dL Hct 44.3 (36-46) % MCV 89.1 (80-100) fL MCH 31.1 (26-34) PG MCHC 34.9 (30-36) % RDW 13.7 (11.6-14.8) % Plt Count 312 (150-400) X10^3/uL Neut % (Auto) 56.4 (50-75) % Lymph % (Auto) 25.1 (25-40) % [place] % (Auto) 15.5 H (3-14) % Eos % (Auto) 2.0 (2-4) % Baso % (Auto) 1.0 (0-2) % Neut # (Auto) 3300 (7733-9181) /uL Lymph # (Auto) 1500 (9992-7792) /uL [place] # (Auto) 900 (0-900) /uL Eos # (Auto) 100 (0-450) /uL Baso # (Auto) 100 (0-100) /uL PT 11.5 (9.4-12.5) SECONDS INR 1.0 (0.9-1.3) APTT 43 H (25.1-36.5) SECONDS Sodium 139 (137-145) mmol/L Potassium 3.6 (3.4-5.1) mmol/L Chloride 107 (98-107) mmol/L Carbon Dioxide 22 (22-32) mmol/L BUN 12 (7-17) mg/dL Creatinine 0.64 (0.52-1.04) mg/dL Estimated GFR > 60 (>60) mL/min BUN/Creatinine Ratio 18.8 (6-22) Glucose 103 (80-110) mg/dL Calcium 9.8 (8.4-10.2) mg/dL Magnesium 2.1 (1.6-2.3) mg/dL Total Bilirubin 0.5 (0.2-1.3) mg/dL AST 26 (14-36) IU/L ALT 17 (<35) IU/L Alkaline Phosphatase 71 (38-126) U/L Total Creatine Kinase 34 (30-135) U/L Troponin I < 0.012 (0.01-0.034) ng/mL NT-Pro-B Natriuret Pep 1670 H (<125) pg/mL Total Protein 7.9 (6.3-8.2) g/dL Albumin 4.9 (3.5-5.0) g/dL Globulin 3.0 (1.7-4.1) g/dL Albumin/Globulin Ratio 1.6 (1.0-2.8) Lipase 48 (23-300) U/L Imaging Data Chest x-ray: Radiologist's Impression: PROCEDURE: XR CHEST 1V INDICATIONS: chest pain TECHNIQUE: One view of the chest was acquired. COMPARISON: None. FINDINGS: Surgical changes and devices: Sternotomy wires. Device projects over left mid chest. Lungs and pleura: Right lung base linear opacity probably atelectasis or scarring. No dense consolidation or pleural effusion. Mediastinum: Normal heart size. Bones and chest wall: Degenerative changes. IMPRESSION: No dense consolidation or pleural effusion on this single view study. Right lung base linear opacity probably atelectasis or scarring. Dictated by: Dustin Finley M.D. on 03/15/2024 at 19:43 Approved by: Dustin Finley M.D. on 03/15/2024 at 19:44 ECG Data Attestation: I personally reviewed and interpreted this ECG as follows: Prior ECG tracings: not available for review Interpretation: Atrial flutter heart rate 140 no priors to compare no acute ischemia Repeat EKGs MDM Narrative Medical decision making narrative: MDM CC: Chest pain Complicating co-morbidities: Bradycardia heart rate normally in the 40s to 50 hypothyroid Medical records reviewed: [ ] Differential considered: Arrhythmia Exam documented above, pertinent findings include: Alert well-appearing 73-year-old female irregularly regular heart rate no peripheral edema Lab Test results independently reviewed as above. Pertinent findings: CBC does not show any leukocytosis or anemia CMP no electrolyte abnormality no GARCIA Troponin negative BNP 1670 Independently reviewed EKG as above Atrial flutter 2-1 block Imaging studies independently reviewed: Chest x-ray no acute cardiopulmonary process Consultations: None Treatments: Eliquis Re-evaluations: Additionally discussed with patient about cardioversion sounds as though she is pretty confident that symptoms have only been going on for 24 hours or less. She suddenly self converted into a normal sinus rhythm. CHADS-VASc 3 Discussion: Patient is 73-year-old female presents today with new onset of atrial flutter with RVR self converted in the ED. Blood work has been reviewed overall reassuring. She does have an elevated chads Vasc score of 3. We discussed risks and benefits of Eliquis. She has no contraindications to anticoagulation we will start her on it and she can follow up with primary Discharge Plan Departure Patient Disposition: Home Clinical Impression: Atrial flutter, paroxysmal Activity Restrictions/Additional Instructions: *You have been diagnosed with atrial flutter *What to do: At this time please follow up with your primary care provider and/or your cardiology. There is risk of stroke especially if you go in and out of this particular rhythm If you should fallen hit your head if bleeding will not stop if you are having bloody stools and you must return to the ED *Continue to take medications as directed Eliquis 5 mg twice a day until otherwise Tylenol is okay to take Do not take any aspirin ibuprofen leave naproxen Advil or other NSAIDs *Follow up with your primary care provider in 2-3 days or call [phone] *Return to ER if you should have increased heart rate chest pain palpitations dizziness lightheadedness [or] any new, worsening or concerning symptoms Prescriptions: New Eliquis 5 mg tablet 5 mg PO BID Qty: 60 0RF No Action alendronate 70 mg tablet 70 mg PO QWEEK Qty: 12 3RF levothyroxine 88 mcg tablet 88 mcg PO DAILY amlodipine 10 mg tablet 10 mg PO DAILY sertraline 50 mg tablet 100 mg PO DAILY Referrals: Veronica Covarrubias MD [Primary Care Provider] - Stand Alone Forms: Patient Portal/API/Survey
--- NOTE | 2024-03-15 21:48 | PC.NURSE ---
Pt rhythm appears to be sinus ganga. This RN checks on patient. She reports dizziness for a second and now better. Provider John made aware. EKG being done to confirm rhythm.
--- NOTE | 2024-03-15 21:54 | EKG_ITS ---
[address] [address] Test Date: 2024-03-15 Pat Name: Geovanna Pickard Department: Room: Gender: Female [employer]: : [id number] Requested By: Order Number: [id number] Reading MD: Cj Hall Measurements Intervals [place] Rate: 56 P: 27 [place]: 204 QRS: -18 QRSD: 88 T: 57 QT: 432 QTc: 416 Interpretive Statements Sinus bradycardia with sinus arrhythmia Nonspecific T wave abnormality Electronically Signed On 03-17-2024 23:44:47 PST by Cj Hall
[2024-03-15] MEDS: APIXABAN 5 MG TABLET PO (22:18)
== END 2024-03-15 22:32 | disposition home or self-care (01) ==
PROVIDERS: Emergency Provider Emergency Medicine; PCP Family Medicine
DX: I48.92 Unspecified atrial flutter (principal); I10 Essential (primary) hypertension
CPT/HCPCS: 36415; 71045; 80053; 82550; 83690; 83735; 83880; 84484; 85025; 85610; 85730; 93005; 96374; 96375; 99284

== ENCOUNTER 2024-04-01 11:11 | Emergency (ER) | payer MEDICARE, SELFPAY ==
[2024-04-01] VITALS (27 sets, daily range): BP systolic 175–238; BP diastolic 77–109; PULSE 55–80; RESP 12–28; TEMP 37.1; O2SAT 94–99; BMI 25.0
--- NOTE | 2024-04-01 11:20 | ED.FALL ---
HPI - Fall General Chief Complaint: Fall Stated Complaint: GLF, Rt wrist deformity Time Seen by Provider: 04/01/24 11:20 History of Present Illness HPI Narrative: 73-year-old female with a past medical history of hypothyroidism, newly diagnosed atrial flutter on Eliquis comes into the ED from home for evaluation of mechanical trip and fall right wrist pain. States that she was trying to put her pants on this morning breast her fall with her right hand had immediate pain, according to EMS patient was splinted with obvious deformity. Denies hitting head not complaining of any other injuries at this time did receive ketamine and fentanyl prior to arrival. At time of evaluation patient only complaining of right-sided wrist pain, no other complaints such as headache visual disturbances chest pain shortness breath fever chills nausea vomiting abdominal pain or any other GI/ symptoms time. Related Data Home Medications Medication Instructions Recorded Confirmed amlodipine 10 mg tablet 10 mg PO DAILY 11/27/21 03/18/24 levothyroxine 88 mcg tablet 88 mcg PO DAILY 11/27/21 03/18/24 sertraline 50 mg tablet 100 mg PO DAILY 11/27/21 03/18/24 Previous Rx's Medication Instructions Recorded alendronate 70 mg tablet 70 mg PO QWEEK #12 tabs 03/08/24 apixaban 5 mg tablet (Eliquis) 5 mg PO BID #60 tabs 03/15/24 ondansetron 4 mg disintegrating 4 mg PO Q8H PRN nausea and 04/01/24 tablet vomiting 5 days #15 tabs oxycodone-acetaminophen 5 mg-325 1 tab PO Q8H PRN pain 5 days #15 04/01/24 mg tablet (Percocet) tabs Allergies Allergy/AdvReac Type Severity Reaction Status Date / Time No Known Drug Allergies Allergy Verified 03/18/24 08:28 Review of Systems Review of Systems Narrative: General: Denies fever, chills, weight loss HEENT: Denies headache, eye drainage, eye irritation, head trauma, sore throat, voice change Cardiovascular: Denies any chest pain, palpitations, shortness of breath, tachycardia Respiratory: Denies any shortness of breath, cough, wheeze, stridor GI/: Denies any abdominal pain, nausea, vomiting, diarrhea, bright red blood per rectum, melanotic stools, urinary frequency, urinary retention, dysuria, hematuria MSK: Positive right wrist deformity pain Skin: Denies any rashes, lesions, discoloration Neuro: Denies any headache, lightheadedness, dizziness, fainting, weakness Psych: Denies SI/HI Patient History Medical History (Updated 04/01/24 @ 15:38 by Cj Jones DO) Psoriasis (~2023) PTSD (post-traumatic stress disorder) Depression Anxiety Restless leg syndrome Shoulder pain Osteoporosis Osteopenia Fractures Mumps Measles Chicken pox Cataracts, bilateral Ovarian cyst Endometriosis Hypothyroidism (~1979) Surgical History (Updated 03/08/24 @ 12:24 by Veronica Covarrubias MD) Anesthesia History of surgery on arm (~2021) ASD (atrial septal defect) (~1999) H/O: hysterectomy (~1982) Family History (Updated 02/26/24 @ 19:42 by Chandni Genao) Father Cancer History of heart disease Hyperlipidemia Hypertension Mother Hypertension Daughter Breast cancer Social History household members: spouse Smoking Status: Former smoker alcohol intake: current Smoking Status: Former smoker alcohol intake frequency: a few times a week Exam Narrative Exam Narrative: General: Cooperative, comfortable, well-developed, not in acute distress HEENT: Normocephalic, atraumatic, PERRLA, normal sclera, eyelids normal, Neck: Active full range of motion, atraumatic Chest: Normal to inspection, negative crepitus, no overlying erythema ecchymosis Respiratory: Normal respiratory effort, not in acute respiratory distress, clear to auscultation bilaterally negative cough, wheeze, tachypnea, rhonchi, rales Cardiology: Regular rate rhythm negative gallop, murmur, rubs GI/: Normal to inspection, soft, nonrigid, no tenderness to palpation, exam deferred MSK: Patient with gross deformity noted to the right wrist however neurovascularly intact no overlying erythema ecchymosis no other tenderness to palpation of any other bony prominences Skin: No rashes lesions noted Neuro: Alert awake oriented x3, moves all 4 extremities spontaneously, cranial nerves intact, able to answer all questions appropriately follows commands appropriately Psych: Cooperative, negative suicidal or homicidal ideations Initial Vital Signs Initial Vital Signs: Vital Signs Pulse Rate 70 04/01/24 11:16 Pulse Oximetry 97 02/20/25 11:16 Procedures Orthopedic Fracture Reduction Fracture #1: Time of procedure: 13:20 Time Out Performed: Yes Side: right Fracture Reduction Location: radius and ulna Analgesia: hematoma block Technique: direct manipulation Post Reduction X-rays Demonstrate: acceptable reduction Post-reduction neuro exam: intact Post-reduction vascular exam: intact Splint Applied: Yes Patient Tolerated Procedure: Well Course Orders Ordered: ED Orders 04/01/24 11:30 XR forearm RT 2V Stat XR wrist RT min 3V Stat 04/01/24 13:32 XR wrist RT 2V Stat Discontinued Medications Bupivacaine HCl (Bupivacaine 0.5% (Pf) 30 Ml Vial) 20 ml INJ NOW ONE Stop: 04/01/24 12:46 Last Admin: 04/01/24 12:38 Dose: 20 ml Documented By: RON Fentanyl (Fentanyl 100 Mcg/2 Ml Inj) 50 mcg IV NOW ONE Stop: 04/01/24 13:05 Last Admin: 04/01/24 13:09 Dose: 50 mcg Documented By: LAURE Fentanyl (Fentanyl 100 Mcg/2 Ml Inj) 50 mcg IV NOW ONE Stop: 04/01/24 13:51 Last Admin: 04/01/24 13:20 Dose: 50 mcg Documented By: RON Hydromorphone HCl (Hydromorphone 1 Mg Inj) 1 mg IV NOW ONE Stop: 04/01/24 14:45 Last Admin: 04/01/24 14:58 Dose: 1 mg Documented By: RON Morphine Sulfate (Morphine 4 Mg/Ml Inj) 4 mg IV NOW ONE Stop: 04/01/24 12:16 Last Admin: 04/01/24 12:26 Dose: 4 mg Documented By: RON Ondansetron HCl (Ondansetron 4 Mg/2 Ml Inj) 4 mg IV NOW ONE Stop: 04/01/24 12:33 Last Admin: 04/01/24 12:38 Dose: 4 mg Documented By: RON Vital Signs Vital signs: Vital Signs - 8 hr 04/01/24 11:16 04/01/24 11:18 04/01/24 11:18 Temperature Pulse Rate 70 65 Respiratory Rate Blood Pressure 187/84 H Pulse Oximetry 97 97 Oxygen Delivery Method Oxygen Flow Rate 04/01/24 11:30 04/01/24 11:30 04/01/24 11:31 Temperature 98.7 F Pulse Rate 61 55 L Respiratory Rate 12 16 Blood Pressure 175/77 H 175/77 H Pulse Oximetry 98 97 Oxygen Delivery Method Room Air Oxygen Flow Rate 04/01/24 11:54 04/01/24 11:54 04/01/24 12:00 Temperature Pulse Rate 58 L 58 L Respiratory Rate 12 16 Blood Pressure 218/88 H Pulse Oximetry 98 98 Oxygen Delivery Method Nasal Cannula Oxygen Flow Rate 2 04/01/24 12:00 04/01/24 12:15 04/01/24 12:15 Temperature Pulse Rate 64 Respiratory Rate 13 Blood Pressure 202/86 H 199/85 H Pulse Oximetry 97 Oxygen Delivery Method Oxygen Flow Rate 04/01/24 12:30 04/01/24 12:30 04/01/24 12:45 Temperature Pulse Rate 75 Respiratory Rate 18 Blood Pressure 194/86 H 206/94 H Pulse Oximetry 98 Oxygen Delivery Method Oxygen Flow Rate 04/01/24 12:45 04/01/24 13:00 04/01/24 13:00 Temperature Pulse Rate 69 69 Respiratory Rate 28 H 18 Blood Pressure 211/91 H Pulse Oximetry 97 99 Oxygen Delivery Method Oxygen Flow Rate 04/01/24 13:05 04/01/24 13:05 04/01/24 13:11 Temperature Pulse Rate 70 Respiratory Rate 18 Blood Pressure 218/97 H 238/103 H Pulse Oximetry 98 Oxygen Delivery Method Oxygen Flow Rate 04/01/24 13:11 04/01/24 13:15 04/01/24 13:15 Temperature Pulse Rate 74 80 Respiratory Rate 20 16 Blood Pressure 227/95 H Pulse Oximetry 96 97 Oxygen Delivery Method Oxygen Flow Rate 04/01/24 13:20 04/01/24 13:20 04/01/24 13:26 Temperature Pulse Rate 78 Respiratory Rate 19 Blood Pressure 225/101 H 233/109 H Pulse Oximetry 96 Oxygen Delivery Method Oxygen Flow Rate 04/01/24 13:26 04/01/24 13:30 04/01/24 13:30 Temperature Pulse Rate 73 66 Respiratory Rate 19 12 Blood Pressure 211/85 H Pulse Oximetry 96 96 Oxygen Delivery Method Oxygen Flow Rate 04/01/24 13:35 04/01/24 13:35 04/01/24 13:41 Temperature Pulse Rate 67 64 Respiratory Rate 13 15 Blood Pressure 204/89 H Pulse Oximetry 98 98 Oxygen Delivery Method Oxygen Flow Rate 04/01/24 13:41 04/01/24 13:46 02/20/25 13:46 Temperature Pulse Rate 69 Respiratory Rate 18 Blood Pressure 218/93 H 186/83 H Pulse Oximetry 96 Oxygen Delivery Method Oxygen Flow Rate 04/01/24 14:00 04/01/24 14:00 04/01/24 14:15 Temperature Pulse Rate 62 Respiratory Rate 16 Blood Pressure 192/87 H 178/81 H Pulse Oximetry 96 Oxygen Delivery Method Oxygen Flow Rate 04/01/24 14:15 04/01/24 14:30 04/01/24 14:30 Temperature Pulse Rate 62 62 Respiratory Rate 23 20 Blood Pressure 178/81 H Pulse Oximetry 96 95 Oxygen Delivery Method Oxygen Flow Rate MDM - Fall Differential Diagnosis Differential diagnosis: Likely other (Distal radius fracture, distal ulnar fracture) Imaging Data Extremity x-ray #1: Radiologist's Impression: [address] [address] XRay Report Signed Patient: Geovanna Pickard MR#: [id number] : 1950 Acct:[id number] Age/Sex: 73 / F Date of Service: 04/01/24 Loc: ED Accession Number: [id number] Procedure: XR forearm RT 2V Ordering Provider: Cj Jones D.O. PROCEDURE: XR FOREARM RT 2V INDICATIONS: r/o fx TECHNIQUE: 2 views of the forearm were acquired. COMPARISON: [facility], CR, XR WRIST RT MIN 3V, 04/01/2024, 11:30. [facility], CR, XR WRIST RT 2V, 04/01/2024, 13:21. [facility], CR, XR FOREARM LT 2V, 03/03/2022, 8:55. FINDINGS: Bones: Comminuted impacted and displaced and angulated distal radius and ulna fractures with overriding. Involvement of distal radial articular surface. Soft tissues: No suspicious soft tissue calcifications or masses. IMPRESSION: Distal radius and ulna fractures as described above. No proximal fractures. Extremity x-ray #2: Radiologist's Impression: [address] [address] XRay Report Signed Patient: Geovanna Pickard MR#: [id number] : 1950 Acct:[id number] Age/Sex: 73 / F Date of Service: 04/01/24 Loc: ED Accession Number: [id number] Procedure: XR wrist RT min 3V Ordering Provider: Cj Jones D.O. PROCEDURE: XR WRIST RT MIN 3V INDICATIONS: r/o fx TECHNIQUE: 3 views of the wrist were acquired. COMPARISON: [facility], CR, XR WRIST LT 2V, 03/03/2022, 11:00. FINDINGS: Bones: Markedly comminuted and impacted displaced and angulated distal radius fracture with volar angulation and overriding. Involvement of the distal articular surface. Distal radial ulnar dislocation. Comminuted ulnar neck fracture which is angulated and displaced. Soft tissues: No suspicious soft tissue calcifications. IMPRESSION: Distal radius and ulnar fractures as described above. Extremity x-ray #3: Radiologist's Impression: [address] [address] XRay Report Signed Patient: Geovanna Pickard MR#: [id number] : 1950 Acct:[id number] Age/Sex: 73 / F Date of Service: 04/01/24 Loc: ED Accession Number: [id number] Procedure: XR wrist RT 2V Ordering Provider: Cj Jones D.O. PROCEDURE: XR WRIST RT 2V INDICATIONS: post reduction TECHNIQUE: 2 views of the wrist were acquired. COMPARISON: [facility], CR, XR WRIST RT MIN 3V, 04/01/2024, 11:30. [facility], , XR WRIST LT 2V, 03/03/2022, 11:00. FINDINGS/IMPRESSION: Interval casting. Persistent volar subluxation of the proximal radial fragment . [facility] Narrative Medical decision making narrative: 73-year-old female with a recent diagnosis of atrial flutter on Eliquis, hypothyroidism hyperlipidemia hypertension presents for mechanical trip and fall and right wrist pain. States that she was taking her pants off in the bathroom to go shower and then tripped and braced herself with her right hand, was able to stand bear weight immediately after denies head strike, states that she had pain immediately to the right wrist was splinted by EMS with obvious gross deformity. On exam neurovascularly intact tender to palpation of the right wrist, x-ray consistent with distal ulnar and radius fracture. Patient had hematoma block with fracture reduction and splinting with improvement to anatomical alignment, x-ray showing still volar subluxation however patient states that she does not want anymore manipulation, she states that she would rather just follow up with Orthopedic surgery in outpatient setting. She will be sent home with symptomatic pain relief and referral to orthopedic surgery for definitive treatment. She was given strict return precautions she verbalized understanding of this and agrees to being discharged home with outpatient follow up Discharge Plan Departure Patient Disposition: Home Clinical Impression: Closed fracture distal radius and ulna Activity Restrictions/Additional Instructions: Please follow up with Orthopedic surgery, please stop your Eliquis Please read the discharge instructions sheet carefully and bring all papers to all doctor follow-up visits, as it may contain information that your doctor may want to see. Disease processes change and evolve, if your symptoms worsen or if you develop any new symptoms that are concerning to you please return for evaluation. Your evaluation today does not show any evidence of any life-threatening/serious illnesses requiring admission to the hospital or surgery. Please follow-up with your doctor for re-evaluation in approximately 1 day. Seek immediate medical attention for any worrisome symptoms. *If you do not have a primary care provider please contact the [facility] Resource line at [phone]. They will ask some questions about your medical history and help get you set up with a doctor in the community. Prescriptions: New oxycodone-acetaminophen [Percocet] 5-325 mg tablet 1 tab PO Q8H PRN (Reason: pain) 5 Days Qty: 15 0RF ondansetron 4 mg tablet,disintegrating 4 mg PO Q8H PRN (Reason: nausea and vomiting) 5 Days Qty: 15 0RF No Action alendronate 70 mg tablet 70 mg PO QWEEK Qty: 12 3RF levothyroxine 88 mcg tablet 88 mcg PO DAILY amlodipine 10 mg tablet 10 mg PO DAILY sertraline 50 mg tablet 100 mg PO DAILY Eliquis 5 mg tablet 5 mg PO BID Qty: 60 0RF Referrals: Veronica Covarrubias MD [Primary Care Provider] - Stand Alone Forms: Patient Portal/API/Survey
--- NOTE | 2024-04-01 11:30 | DI.RAD.S_ITS ---
PROCEDURE: XR FOREARM RT 2V INDICATIONS: r/o fx TECHNIQUE: 2 views of the forearm were acquired. COMPARISON: [facility], CR, XR WRIST RT MIN 3V, 04/01/2024, 11:30. [facility], CR, XR WRIST RT 2V, 04/01/2024, 13:21. [facility], CR, XR FOREARM LT 2V, 03/03/2022, 8:55. FINDINGS: Bones: Comminuted impacted and displaced and angulated distal radius and ulna fractures with overriding. Involvement of distal radial articular surface. Soft tissues: No suspicious soft tissue calcifications or masses. IMPRESSION: Distal radius and ulna fractures as described above. No proximal fractures. Dictated by: Long Kaur M.D. on 04/01/2024 at 14:19 Approved by: Long Kaur M.D. on 04/01/2024 at 14:21
--- NOTE | 2024-04-01 11:30 | DI.RAD.S_ITS ---
PROCEDURE: XR WRIST RT MIN 3V INDICATIONS: r/o fx TECHNIQUE: 3 views of the wrist were acquired. COMPARISON: [facility], CR, XR WRIST LT 2V, 03/03/2022, 11:00. FINDINGS: Bones: Markedly comminuted and impacted displaced and angulated distal radius fracture with volar angulation and overriding. Involvement of the distal articular surface. Distal radial ulnar dislocation. Comminuted ulnar neck fracture which is angulated and displaced. Soft tissues: No suspicious soft tissue calcifications. IMPRESSION: Distal radius and ulnar fractures as described above. Dictated by: Long Kaur M.D. on 04/01/2024 at 14:21 Approved by: Long Kaur M.D. on 04/01/2024 at 14:22
[2024-04-01] MEDS: MORPHINE 4 MG/ML INJ IV (12:26)
[2024-04-01] MEDS: ONDANSETRON 4 MG/2 ML INJ IV (12:38)
[2024-04-01] MEDS: BUPIVACAINE 0.5% (PF) 30 ML VIAL 20 ML INJ (12:38)
[2024-04-01] MEDS: fentaNYL 100 MCG/2 ML INJ 50 MCG IV ×2 (13:09→13:20)
--- NOTE | 2024-04-01 13:32 | DI.RAD.S_ITS ---
PROCEDURE: XR WRIST RT 2V INDICATIONS: post reduction TECHNIQUE: 2 views of the wrist were acquired. COMPARISON: [facility], CR, XR WRIST RT MIN 3V, 04/01/2024, 11:30. [facility], CR, XR WRIST LT 2V, 03/03/2022, 11:00. FINDINGS/IMPRESSION: Interval casting. Persistent volar subluxation of the proximal radial fragment . Dictated by: Zeeshan Plasencia M.D. on 04/01/2024 at 14:47 Approved by: Zeeshan Plasencia M.D. on 04/01/2024 at 14:48
--- NOTE | 2024-04-01 13:53 | PC.NURSE ---
Addendum entered by Georgia Matta R.N. 04/01/24 13:58: Second dose of fentanyl (50mcg) was taken from the primary fentanyl vial of 100mcg, therefore no fentanyl to waste. Per physician verbal order at bedside. Original Note: Time out called at 1308, physician, primary RN and float RN in the room. Consent signed and witnessed. Procedure start time at 1310, Bupivacaine block administered by physician. Pt received 50mcg of fentanyl at 1317 and 50mcg fentanyl at 1320, administered by physician during R-arm reduction procedure. R-arm sugar tong splinted, xray post procedure. Pt tolerated procedure well.
[2024-04-01] MEDS: HYDROMORPHONE 1 MG INJ IV (14:58)
== END 2024-04-01 15:52 | disposition home or self-care (01) ==
PROVIDERS: Emergency Provider Student in an Organized Health Care Education/Training Program; PCP Family Medicine
DX: S52.501A Unspecified fracture of the lower end of right radius, initial encounter for closed fracture (principal); S52.601A Unspecified fracture of lower end of right ulna, initial encounter for closed fracture; W18.30XA Fall on same level, unspecified, initial encounter; Z79.01 Long term (current) use of anticoagulants; I48.92 Unspecified atrial flutter
CPT/HCPCS: 25605; 73090; 73100; 73110; 96374; 96375; 99284; J1171; J2270; J2405; J3010

== ENCOUNTER 2024-04-07 06:11 | Day surgery (SDC) | payer MEDICARE, SELFPAY ==
[2024-04-02 13:24] VITALS: BMI 23.6
[2024-04-07 06:41] VITALS: BMI 24.4
[2024-04-07 06:49] VITALS: BP 170/93; PULSE 94; RESP 17; TEMP 37.1; O2SAT 98
--- NOTE | 2024-04-07 07:03 | PM.PREOP ---
Pre-operative Note Interval Note History & Physical reviewed/Exam performed by Physician: Yes Changes to H&P: No
[2024-04-07] MEDS: LACTATED RINGERS 1,000 ML 42 ML IV (07:04)
--- NOTE | 2024-04-07 07:04 | SUR.PREOP ---
Patient denied being hurt at home. Reported she is safe.
--- NOTE | 2024-04-07 07:47 | SUR.PREOP ---
Block start time 0739 with a time out. Monitoring initiated and maintained throughout procedure. Oxygen and medications given by anesthesia provider or per anesthesiologist instructions. Patient remained stable throughout procedure, no adverse reactions noted. Block end time 0742.
[2024-04-07] MEDS: CEFAZOLIN 2 GM/100 ML PREMIX 100 ML IV (07:55)
--- NOTE | 2024-04-07 08:10 | SUR.OPER ---
Supine on padded OR bed, head on pillow, Left arm secured on padded arm boards at <90 degrees abduction, Operative arm on arm table positioner, legs uncrossed, safety belt at thigh, tape over blanket over lower legs.
[2024-04-07] MEDS: BUPIVACAINE 0.25% W/ EPI 30 ML VIAL 60 ML INJ (08:21)
[2024-04-07 09:35] VITALS: BP 122/69; PULSE 101; RESP 15; TEMP 37; O2SAT 95
[2024-04-07 09:40] VITALS: BP 123/69; PULSE 108; RESP 15; TEMP 36.9; O2SAT 94
[2024-04-07 09:46] VITALS: BP 128/69; PULSE 111; RESP 15; TEMP 36.8; O2SAT 95
[2024-04-07 09:52] VITALS: BP 124/67; PULSE 102; RESP 15; TEMP 36.7; O2SAT 95
--- NOTE | 2024-04-07 10:15 | P.OP_ITS ---
Operative Date/Time/Diagnoses Date of procedure: 04/07/24 Time of procedure: 08:00 Pre-op diagnosis: Right distal radius and ulna fractures Post-op diagnosis: same Procedure & Clinicians Procedure: Open reduction internal fixation distal radius fracture intra-articular 2 parts CPT code 12645 Open reduction internal fixation treatment ulna fracture CPT code 85070 right Same procedure as scheduled: Yes Indications: The patient is a 73-year-old female that sustained a ground level fall for right upper extremity resulting in a displaced intra-articular right distal radius fracture and displaced distal ulna shaft fracture. She was indicated for open reduction internal fixation of the fractures due to severe displacement. Goals of surgery are to improve alignment reduce the risks of posttraumatic arthritis and dysfunction and prolonged immobility. Stable fixation with a allow early mobilization. The risks and benefits of the procedure have been discussed with the patient and given the opportunity to ask questions. The risks of surgery include but are not limited to infection, malunion, nonunion, persistence of pain, damage to nerves and blood vessels, posttraumatic arthritis, DVT, PE, coardiopulmonary complications and . The patient expressed a thorough understanding of the risks and benefits of surgery and has elected to proceed. Consent was signed Surgeon: Yumiko Stacy Click Yes if Unassisted: Yes Anesthesia Type: General, Peripheral nerve block and Local Operative Notes Findings: Displaced intra-articular distal radius fracture Displaced ulna, distal fracture osteoporotic bone. Intra-articular distal radius fracture was reduced and fixed with a narrow plate from the Arthrex set, volar locking plate. Distal ulna fracture was fixed with a 2.4 T-plate from the Arthrex mini system Closure Type: primary Specimen(s): none sent Prosthetic devices, grafts, tissues, transplants, or devices: Arthrex narrow volar locking distal radius plate, right with nonlocking and locking screws. Arthrex 2.4 T-plate with locking screws. Estimated Blood Loss (mL): 30 Blood products transfused: none Tourniquet time (min): 69 Procedure in detail: Patient was seen in the preoperative area the site of surgery was marked informed consent confirmed. This was the right wrist. Patient was taken to the operating room by the anesthesia team a regional block was placed for postoperative pain control. She was positioned supine on operative table with a hand table on the right. A brachial tourniquet was applied and well padded. General anesthetic was administered. The right upper extremity was prepped and draped in the standard sterile fashion a formal time- out procedure was performed confirming the patient's side and site of surgery administration of appropriate preoperative antibiotic all were in agreement. Attention turned to the right upper extremity there was significant bruising and swelling but no blisters. A standard volar FCR approach was taken to the distal radius this was marked out on the skin which was then incised sharply with a scalpel the FCR tendon sheath was opened the FCR was retracted laterally and the floor of the FCR tendon sheath was then opened and again the deep flexors and FPL were retracted laterally. The pronator quadratus was cleared off the distal radius in the obvious intra-articular distal radius fracture was exposed. The intra-articular split was cleaned and reduced and held with a K-wire. The metaphyseal split was cleaned and then reduced with thumb pressure ulnar deviation flexion and then pinned with a K-wire. A narrow plate from the Arthrex set was then fit to the fracture and fixed provisionally with an olive wire and a K-wire distally. This was checked for positioning and to make sure there was not too distal to proximal. Once this was completed a screw was placed in the oblong hole fine adjustments were made then distal nonlocking screws were placed to bring the plate to bone followed by locking screws distally and then locking screws in the shaft. The nonlocking screws distally were then later removed and exchanged for shorter locking screws. The wrist was taken through range of motion which was normal and there were no hardware prominences that were identified. The wound was irrigated and closed with 3-0 Vicryl, 4-0 Monocryl and 3-0 nylon suture. Then attention was turned to the distal ulna Separate incision was made laterally along the distal ulna centered on the level of the fracture at the head neck junction. This was taken down through the skin subcutaneous tissue. Interval between the ECU and FCU was identified the fracture was osteoporotic. The fracture was cleaned and reduced and held with a K-wire. A 2.4 T-plate from the Arthrex set was then fixed along the volar surface of the ulna provisionally with a nonlocking screw and then finally with locking screws distally and locking screws proximally. The 1st nonlocking screw was later removed and a locking screw placed. Once this was completed intraoperative fluoroscopy was evaluated there was no hardware prominence. The DRUJ was stable. In full wrist range of motion was obtained. Final AP lateral oblique x-rays were obtained. The wound was irrigated and closed with 2-0 Vicryl 4-0 Monocryl and 3-0 nylon. 0.25% Marcaine with epinephrine was injected for local anesthesia. A sterile dressing with Xeroform gauze and Webril was applied. A well-padded volar forearm wrist splint was applied The patient was woken from anesthesia and taken to the recovery unit in good condition there were no immediate complications from this procedure. Counts were correct. Complications: none Post-operative Condition: stable Disposition: PACU Plan for aftercare: 1-2 lb weight limit. May move fingers and elbow. Keep splint in place until follow up--we will have OT splinting and OT for therapy postoperatively. Follow up in Orthopedic Clinic in approximately 2-3 weeks for suture removal.
[2024-04-07 10:37] VITALS: BP 126/68; PULSE 96; RESP 16; TEMP 36.2; O2SAT 97
== END 2024-04-07 10:55 | disposition home or self-care (01) ==
PROVIDERS: PCP Family Medicine; Referring Provider Orthopaedic Surgery Foot and Ankle Surgery; Visit Provider Orthopaedic Surgery Foot and Ankle Surgery
PROC: (CPT 25608; principal; 2024-04-07 07:45)
DX: S52.501A Unspecified fracture of the lower end of right radius, initial encounter for closed fracture (principal); S52.571A Other intraarticular fracture of lower end of right radius, initial encounter for closed fracture; S52.601A Unspecified fracture of lower end of right ulna, initial encounter for closed fracture; W18.2XXA Fall in (into) shower or empty bathtub, initial encounter; Y92.002 Bathroom of unspecified non-institutional (private) residence as the place of occurrence of the external cause; I48.92 Unspecified atrial flutter; Z79.01 Long term (current) use of anticoagulants; G89.18 Other acute postprocedural pain
CPT/HCPCS: 25608; 25545; 64450; C1713; J0690; J1100; J1885; J2405; J2704

== ENCOUNTER → 2024-04-12 06:57 | Outpatient (CLI) | payer MEDICARE, SELFPAY ==
--- NOTE | 2024-04-12 06:58 | DI.ECHO.S_ITS ---
[facility] : : [address] : : [place] : : [id number] : : Phone: [phone] Echocardiogram Report + + :Name: KRIS MCRAE Study Date: 04/12/2024 Height: 68 in : :[facility] ReadingLocation: Weight: 161 lb : : Gender: Female BSA: 1.9 m2 : :: 1950 Age: 73 yrs BP: 140/76 mmHg: :Reason For Study: HISTORY OF ASD REPAIR : :Ordering Physician: TERRANCE, : :CELSO Valle Performed By: Aly Dutta : :Referring: CELSO CARLOS : + + Interpretation Summary Normal left ventricle size with ejection fraction 60-65%. The right ventricle is moderate to severely dilated. The right ventricular systolic function is normal. The left atrium is mildly dilated. The right atrium is moderate to severely dilated. There is mild to moderate tricuspid regurgitation. The right ventricular systolic pressure is estimated to be at least 42 mmHg based on an estimated right atrial pressure of 3 mm Hg. There is no Doppler evidence for an atrial septal defect. Comparison is made with the echocardiogram of 08/22/2020, RV size & RV systolic pressure have increased. Procedure: A two-dimensional transthoracic echocardiogram with color flow and Doppler was performed. The study quality was technically good. Comparison is made with the echocardiogram of 08/22/2020. The patient was in normal sinus rhythm during the exam. Left Ventricle: The left ventricle is normal in size. There is normal left ventricular wall thickness. There is no ventricular septal defect visualized. The ejection fraction is estimated to be 60-65%. There are no focal wall motion abnormalities. Right Ventricle: The right ventricle is moderate to severely dilated. The right ventricular systolic function is normal. Atria: The left atrium is mildly dilated. The right atrium is moderate to severely dilated. There is no Doppler evidence for an atrial septal defect. Mitral Valve: The mitral valve leaflets are mildly calcified. There is trace mitral regurgitation. Aortic Valve: The aortic valve is trileaflet. The aortic valve opens well. No aortic regurgitation is present. Tricuspid Valve: The tricuspid valve leaflets are thin and pliable. There is mild to moderate tricuspid regurgitation. The right ventricular systolic pressure is estimated to be at least 42 mmHg based on an estimated right atrial pressure of 3 mm Hg. Pulmonic Valve: The pulmonic valve leaflets are thin and pliable; valve motion is normal. There is no pulmonic valvular regurgitation. Great Vessels: The aortic root is normal size. The dimensions of the ascending aorta are normal. The pulmonary artery is normal size. The IVC is of normal diameter and collapses greater than 50% with a sniff. This suggests a low right atrial pressure of 3 mm Hg. Pericardium/ Pleura There is no pericardial effusion. There is no pleural effusion. MMode/2D Measurements & Calculations LVIDd: 4.8 cm LVOT diam: 2.2 cm LVIDs: 3.1 cm Ao root diam: 3.0 cm FS: 35.9 % asc Aorta Diam: 2.9 cm EPSS: 0.55 cm IVSd: 0.95 cm LVPWd: 0.83 cm LV rodriguez. diameter/BSA (cm/m^2): 2.6 LV sys. diameter/BSA (cm/m^2): 1.7 LA A2 area: 25.5 cm2 RA long axis: 5.4 cm LA A4 area: 20.2 cm2 RA area: 21.5 cm2 LA length (vol): 6.3 cm RA vol: 72.3 ml LA vol: 68.9 ml RA : 38.8 ml/m2 LA vol index: 37.0 ml/m2 IVC diam: 1.9 cm RVD1 (basal): 5.3 cm RVD2 (mid): 4.3 cm TAPSE: 2.7 cm Doppler Measurements & Calculations Ao V2 max: 182.3 cm/sec LVOT Max Humberto: 166.7 cm/sec Ao V2 mean: 135.6 cm/sec LV V1 max P.1 mmHg Ao max P.3 mmHg LV V1 VTI: 34.9 cm Ao mean P.0 mmHg MIRTA(I,D): 3.0 cm2 Ao V2 VTI: 43.4 cm MIRTA(V,D): 3.4 cm2 sev ratio: 0.81 MIRTA indexed to BSA (cm^2/m^2): 1.6 MV E max humberto: 69.5 cm/sec TR max humberto: 311.5 cm/sec MV A max humberto: 102.6 cm/sec TR max P.8 mmHg MV E/A: 0.68 PA V2 max: 82.9 cm/sec Med Peak E' Humberto: 7.6 cm/sec PA V2 mean: 59.9 cm/sec E/E' med: 9.1 PA mean P.6 mmHg Lat Peak E' Humberto: 7.5 cm/sec PA pr(Accel): 34.5 mmHg E/E' lat: 9.3 E/e' average: 9.2 MV dec time: 0.21 sec SV(OT): 128.7 ml Electronically signed by: Micheal Pate on Reading Physician:04/12/2024 09:21 AM
== END ==
PROVIDERS: PCP Family Medicine; Referring Provider Family Medicine; Visit Provider Family Medicine
DX: Z98.890 Other specified postprocedural states (principal); I07.1 Rheumatic tricuspid insufficiency
CPT/HCPCS: 93306

== ENCOUNTER → 2024-10-19 10:01 | Outpatient (CLI) | payer MEDICARE, SELFPAY ==
--- NOTE | 2024-10-19 10:03 | DI.ECHO.S_ITS ---
[facility]+ [facility] : : [address] : : [place] : : [id number] : : Phone: [phone] Echocardiogram Report + + :Name: KRIS MCRAE Study Date: 10/19/2024 Height: 68 in : :[facility] ReadingLocation: Weight: 165 lb : : Gender: Female BSA: 1.9 m2 : :: 1950 Age: 74 yrs BP: 159/88 mmHg: :Reason For Study: Cardiomegaly : :Ordering Physician: AVIS ISBELL Performed By: Fuentes Brothers : :Referring: AVIS ISBELL : + + Interpretation Summary - The left ventricular contractility is normal. Estimated ejection fraction is greater than 55% with no segmental wall motion abnormalities. No LVH. Indeterminate diastolic function. - The right ventricular contractility is normal. - Biatrial enlargement present. The right ventricle is also dilated. The left ventricular cavity is of normal size. - Mild tricuspid regurgitation with estimated pulmonary systolic artery pressures of 28 mmHg. - No obvious intracardiac shunts. - No obvious intracardiac masses nor thrombi. - No hemodynamically significant pericardial effusion. - Low right-sided filling pressures. Conclusion: Normal biventricular systolic function with mild tricuspid regurgitation. When compared with previous echocardiogram, there decrease in the size of the right ventricular enlargement as well as less tricuspid regurgitation. Procedure: A two-dimensional transthoracic echocardiogram with color flow and Doppler was performed. The study quality was technically adequate. Comparison is made with the echocardiogram of 04/12/2024. The heart rate ranged between 53-57 bpm during the study. Left Ventricle: The left ventricle is normal in size and wall thickness. Left ventricular systolic function is normal. The ejection fraction is estimated to be 55-60%. There are no focal wall motion abnormalities. Diastolic function is indeterminate. Right Ventricle: The right ventricle is moderately dilated. The right ventricular systolic function is normal. Atria: The left atrium is mildly dilated. The right atrium is mildly dilated. There is no Doppler evidence for an interatrial shunt. Mitral Valve: The mitral valve leaflets appear to open well. There is no mitral valve stenosis. There is trace mitral regurgitation. Aortic Valve: The aortic valve is trileaflet. The aortic valve opens well. There is no aortic valve stenosis. There is trace aortic regurgitation. Tricuspid Valve: The tricuspid valve leaflets are thin and pliable. There is mild tricuspid regurgitation. The right ventricular systolic pressure is estimated to be at least 28 mmHg based on an estimated right atrial pressure of 3 mm Hg. Pulmonic Valve: The pulmonic valve is not well seen, but is grossly normal. There is trace pulmonic regurgitation. Great Vessels: The aortic root is normal size. The ascending aorta is normal in size. The aortic arch could not be visualized. The IVC is of normal diameter and collapses greater than 50% with a sniff. This suggests a low right atrial pressure of 3 mm Hg. Pericardium/ Pleura There is no pericardial effusion. MMode/2D Measurements & Calculations LVIDd: 5.0 cm LVOT diam: 2.1 cm LVIDs: 3.1 cm Ao root diam: 2.5 cm FS: 37.4 % asc Aorta Diam: 2.2 cm IVSd: 0.97 cm LVPWd: 0.96 cm LV rodriguez. diameter/BSA (cm/m^2): 2.6 LV sys. diameter/BSA (cm/m^2): 1.7 LA A2 area: 23.7 cm2 RA area: 16.5 cm2 LA A4 area: 19.6 cm2 IVC diam: 1.9 cm LA length (vol): 5.8 cm LA vol: 67.7 ml LA vol index: 35.9 ml/m2 RVD1 (basal): 4.3 cm RVD2 (mid): 3.4 cm TAPSE: 1.8 cm Doppler Measurements & Calculations Ao V2 max: 158.8 cm/sec LVOT Max Humberto: 155.4 cm/sec Ao V2 mean: 105.4 cm/sec LV V1 max P.7 mmHg Ao max P.1 mmHg LV V1 VTI: 29.7 cm Ao mean P.1 mmHg MIRTA(I,D): 3.0 cm2 Ao V2 VTI: 33.1 cm MIRTA(V,D): 3.3 cm2 sev ratio: 0.90 MIRTA indexed to BSA (cm^2/m^2): 1.6 MV E max humberto: 86.7 cm/sec TR max humberto: 247.8 cm/sec MV A max humberto: 90.3 cm/sec TR max P.6 mmHg MV E/A: 0.96 PA V2 max: 110.0 cm/sec Med Peak E' Humberto: 8.6 cm/sec PA V2 mean: 80.4 cm/sec E/E' med: 10.1 PA mean P.9 mmHg Lat Peak E' Humberto: 5.8 cm/sec PA pr(Accel): 25.9 mmHg E/E' lat: 14.9 E/e' average: 12.5 MV dec time: 0.16 sec SV(LVOT): 99.9 ml Reading Physician:DEVIN
== END ==
LOC: ECHO 10:03
PROVIDERS: PCP Family Medicine; Referring Provider Internal Medicine; Visit Provider Internal Medicine
DX: I07.1 Rheumatic tricuspid insufficiency (principal)
CPT/HCPCS: 93306

== ENCOUNTER → 2024-11-16 09:32 | Outpatient (CLI) | payer MEDICARE, SELFPAY ==
[2024-11-16 10:55] LABS: Add Manual Diff / Slide Review NO; Hematocrit 38.6 % (36-46); Hemoglobin 13.2 g/dL (12.0-16.0); Lymphocytes Absolute Auto 1600 /uL (1100-4500); Mean Corpuscular HGB Conc 34.1 % (30-36); Mean Corpuscular Hemoglobin 30.2 PG (26-34); Mean Corpuscular Volume 88.4 fL (80-100); Platelet Count 337 X10^3/uL (150-400)
[2024-11-16 13:12] LABS: Thyroid Stimulating Hormone 1.25 uIU/mL (0.47-4.68)
[2024-11-16 17:16] LABS: Alanine Aminotransferase 12 IU/L (<35); Albumin 4.3 g/dL (3.5-5.0); Albumin Globulin Ratio 1.7 (1.0-2.8); Alkaline Phosphatase 64 U/L (38-126); Blood Urea Nitrogen 11 mg/dL (7-17); Calcium 9.2 mg/dL (8.4-10.2); Carbon Dioxide 25 mmol/L (22-32); Chloride 108 mmol/L (98-107); Cholesterol 254 mg/dL (140-199); Estimated Glomerular Filt Rate > 60 mL/min (>60); Globulin 2.6 g/dL (1.7-4.1); Glucose 90 mg/dL (70-99); HDL Cholesterol 56 mg/dL (40-60); HEMOLYSIS < 15 (0-50); Potassium 4.1 mmol/L (3.4-5.1); Sodium 139 mmol/L (137-145); Total Protein 6.9 g/dL (6.3-8.2); Triglycerides 166 mg/dL (35-150)
== END ==
PROVIDERS: PCP Family Medicine; Referring Provider Family Medicine; Visit Provider Family Medicine
DX: E78.5 Hyperlipidemia, unspecified (principal); E03.9 Hypothyroidism, unspecified
CPT/HCPCS: 36415; 80053; 80061; 84443; 85025

== ENCOUNTER → 2024-11-19 10:47 | Outpatient (CLI) | payer MEDICARE, SELFPAY ==
[2024-11-19 14:15] LABS: Folate > 20.0 ng/mL (2.76-20.0); Vitamin B12 662 pg/mL (239-931)
[2024-11-19 14:25] LABS: Vitamin D 25 Hydroxy (D3) 56.2 ng/mL (30.0-100.0)
== END ==
PROVIDERS: PCP Family Medicine; Referring Provider Family Medicine; Visit Provider Family Medicine
DX: M81.0 Age-related osteoporosis without current pathological fracture (principal); R41.3 Other amnesia
CPT/HCPCS: 36415; 82306; 82607; 82746